=== PATIENT | female | born 1940 | race Caucasian/White ===

== ENCOUNTER 2016-10-30 08:51 | Day surgery (SDC) | payer MEDICARE ==
[~2016-10-30 08:51] MED LIST: Acetaminophen TAB* 325 MG PO PRN; Buffered Lidocaine 0.9% SYRIN* 5 ML/SYR SYRINGE INTRADERM ONE
[2016-10-30] MEDS ORDERED: Midazolam* 1 MG/ML 2 ML VIAL (2 MG) ONE (10:05)
[2016-10-30] MEDS ORDERED: fentaNYL* 50 MCG/ML 2 ML VIAL (100 MCG VIAL) ONE (10:05)
[2016-10-30 11:12] VITALS: BP 133/59
[2016-10-30] MEDS ORDERED: Propofol* 10 MG/ML 20 ML BTL IV PUSH ONE (11:23)
[2016-10-30] MEDS ORDERED: Phenylephrine 2.5% OPTH.SOL* 2 ML BTL ONE (13:56)
[2016-10-30] MEDS ORDERED: Lidocaine 1% MPF* 2 ML VIAL ONE (13:56)
[2016-10-30] MEDS ORDERED: Cyclopentolate 1% OPTH.SOL* 2 ML BTL ONE (13:56)
[2016-10-30] MEDS ORDERED: Tropicamide 1% OPTH.SOL* BTL ONE (13:56)
[2016-10-30] MEDS ORDERED: Buffered Lidocaine 0.9% SYRIN* 5 ML/SYR SYRINGE ONE (13:56)
[2016-10-30] MEDS ORDERED: Tetracaine 0.5% OPTH.SOL 4 ML* 1 DROP BTL ONE (13:56)
[2016-10-30] MEDS ORDERED: Neomycin/Polymy/Dex OPHTH.OIN* 3.5 GM ONE (13:56)
[2016-10-30] MEDS ORDERED: Ketorolac 0.5% OPHTH (NF) 0.5 % 5 ML BTL ONE (13:56)
--- NOTE | 2016-10-30 14:37 | OP ---
DATE OF OPERATION/DATE OF DICTATION: 10/30/2016 - [facility] DATE OF : 1940. SURGEON: Dr. Fidel Argueta. DEPUTY SHERIFF/INVESTIGATOR: None. ANESTHESIA: Topical with intravenous sedation. PRE-OP DIAGNOSIS: Cataract, right eye. POST-OP DIAGNOSIS: Cataract, right eye. OPERATIVE PROCEDURE: Phacoemulsification and cataract extraction with posterior chamber intraocular lens implant, right eye. COMPLICATIONS: None. BLOOD LOSS: None. DESCRIPTION OF PROCEDURE: The patient was brought to the operating room and received a small amount of intra-venous sedation. A drop of Tetracaine was placed in her right eye. She was prepped and draped in the usual sterile fashion for ophthalmic surgery and attention was directed to the right eye where a speculum was placed. A paracentesis was created at the 11 o'clock position and 0.1 cc of 1 percent preservative-free Lidocaine was injected into the anterior chamber followed by DisCoVisc. The eye was digitally stabilized while a 2.75 mm keratome was used to create a triplanar clear corneal incision at the 9 o'clock position. A continuous curvilinear capsulorrhexis was created with a cystotome and Utrata forceps. BSS on a cannula was used to hydrodissect the lens from the capsule. Phacoemulsification was performed in a divide-and- conquer technique to create four fragments which were removed. Residual cortical material was removed with irrigation and aspiration. DisCoVisc was used to inflate the capsular bag and an AUOOTO 22.0 diopter lens was folded and inserted into the capsular bag. DisCoVisc was removed using irrigation and aspiration. BSS on a cannula was used to hydrate the corneal stroma and seal the wound. At the end of the case the pupil was round and the lens was centered. The eye was of normal pressure and the wound was water tight. The speculum was removed and topical Maxitrol ointment was placed on the surface of the eye. The eye was closed, patched and shielded and the patient was sent to the recovery room in stable condition with post operative instructions and follow-up appointment given. [id number] #: [id number] MTDD
== END 2016-10-30 11:09 | disposition home or self-care (01) ==
LOC: OREAST 08:51
PROVIDERS: ATTEND Ophthalmology
DX: H26.9 Unspecified cataract (principal); I10 Essential (primary) hypertension; J44.9 Chronic obstructive pulmonary disease, unspecified; C34.90 Malignant neoplasm of unspecified part of unspecified bronchus or lung; Z79.82 Long term (current) use of aspirin; Z88.8 Allergy status to other drugs, medicaments and biological substances; Z87.891 Personal history of nicotine dependence; E78.00 Pure hypercholesterolemia, unspecified
CPT/HCPCS: A9270-GY; J2250; J2704; J3010; V2632

== ENCOUNTER 2016-11-06 10:31 | Day surgery (SDC) | payer MEDICARE ==
[2016-11-06] MEDS ORDERED: fentaNYL* 50 MCG/ML 2 ML VIAL (100 MCG VIAL) ONE (11:03)
[2016-11-06] MEDS ORDERED: Midazolam* 1 MG/ML 2 ML VIAL (2 MG) ONE (11:03)
[2016-11-06 12:12] VITALS: BP 123/45
[2016-11-06] MEDS ORDERED: Cyclopentolate 1% OPTH.SOL* 2 ML BTL ONE (13:18)
[2016-11-06] MEDS ORDERED: Buffered Lidocaine 0.9% SYRIN* 5 ML/SYR SYRINGE ONE (13:18)
[2016-11-06] MEDS ORDERED: Ketorolac 0.5% OPHTH (NF) 0.5 % 5 ML BTL ONE (13:18)
[2016-11-06] MEDS ORDERED: Phenylephrine 2.5% OPTH.SOL* 2 ML BTL ONE (13:18)
[2016-11-06] MEDS ORDERED: Tropicamide 1% OPTH.SOL* BTL ONE (13:18)
[2016-11-06] MEDS ORDERED: Lidocaine 1% MPF* 2 ML VIAL ONE (13:18)
[2016-11-06] MEDS ORDERED: Neomycin/Polymy/Dex OPHTH.OIN* 3.5 GM ONE (13:18)
[2016-11-06] MEDS ORDERED: Tetracaine 0.5% OPTH.SOL 4 ML* 1 DROP BTL ONE (13:18)
--- NOTE | 2016-11-07 02:35 | OP ---
DATE OF OPERATION: 11/06/16 [facility] DATE OF : [birth year] SURGEON: Dr. Fidel Argueta. KILNMAN: None. ANESTHESIOLOGIST: Wily Salazar MD ANESTHESIA: Topical with intravenous sedation. PRE-OP DIAGNOSIS: Cataract, left eye. POST-OP DIAGNOSIS: Cataract, left eye. OPERATIVE PROCEDURE: Phacoemulsification and cataract extraction with posterior chamber intraocular lens implant, left eye. COMPLICATIONS: None. BLOOD LOSS: None. DESCRIPTION OF PROCEDURE: The patient was brought to the operating room and received a small amount of intravenous sedation. A drop of Tetracaine was placed in her left eye. She was prepped and draped in the usual sterile fashion for ophthalmic surgery and attention was directed to the left eye where a speculum was placed. A paracentesis was created at the 5 o'clock position and 0.1 cc of 1 percent preservative-free Lidocaine was injected into the anterior chamber followed by DisCoVisc. The eye was digitally stabilized while a 2.75 mm keratome was used to create a triplanar clear corneal incision at the 3 o'clock position. A continuous curvilinear capsulorrhexis was created with a cystotome and Utrata forceps. BSS on a cannula was used to hydrodissect the lens from the capsule. Phacoemulsification was performed in a divide-and- conquer technique to create four fragments which were removed. Residual cortical material was removed with irrigation and aspiration. DisCoVisc was used to inflate the capsular bag and an AU00T0 22.5 diopter lens was folded and inserted into the capsular bag. DisCoVisc was removed using irrigation and aspiration. BSS on a cannula was used to hydrate the corneal stroma and seal the wound. At the end of the case the pupil was round and the lens was centered. The eye was of normal pressure and the wound was water tight. The speculum was removed and topical Maxitrol ointment was placed on the surface of the eye. The eye was closed, patched and shielded and the patient was sent to the recovery room in stable condition with post operative instructions and follow-up appointment given. [id number]/CPS #: [id number] MTDD
== END 2016-11-06 12:10 | disposition home or self-care (01) ==
LOC: OREAST 10:31
PROVIDERS: ATTEND Ophthalmology
DX: H25.042 Posterior subcapsular polar age-related cataract, left eye (principal); I10 Essential (primary) hypertension; J44.9 Chronic obstructive pulmonary disease, unspecified; E78.00 Pure hypercholesterolemia, unspecified; M54.30 Sciatica, unspecified side; L40.9 Psoriasis, unspecified; Z87.891 Personal history of nicotine dependence; Z85.118 Personal history of other malignant neoplasm of bronchus and lung; Z88.5 Allergy status to narcotic agent; Z79.82 Long term (current) use of aspirin
CPT/HCPCS: A9270-GY; J2250; J3010; V2632

== ENCOUNTER 2017-05-23 18:23 | Emergency (ER) | payer MEDICARE ==
--- NOTE | 2017-05-23 20:01 | RAD ---
INDICATION: Bilateral leg swelling COMPARISON: May 01, 2013 TECHNIQUE: PA and lateral dual-energy views were obtained. FINDINGS: Bones/Soft Tissues: There are no acute bony findings. Cardiomediastinal: The cardiomediastinal silhouette is normal. Lungs: There are no infiltrates. Pleura: There are no pleural effusions. Other: None IMPRESSION: NO ACTIVE DISEASE.
--- NOTE | 2017-05-23 20:52 | RAD ---
INDICATION: Pain and swelling. COMPARISON: None TECHNIQUE: Duplex interrogation of the Lowerextremity was performed. FINDINGS: Deep veins: The common femoral, great saphenous, profunda femoris, proximal, mid, and distal deep femoral, popliteal, posterior tibial, and peroneal veins are patent. There is normal compressibility, augmentation, and phasic flow. Superficial veins: There are no findings of superficial thrombophlebitis. Popliteal fossa:There is a complex popliteal cyst measuring 2.7 x 2.2 x 5.2 cm.. Soft tissues:There are no soft tissue abnormalities. IMPRESSION: NO EVIDENCE OF DEEP VENOUS THROMBOSIS. POPLITEAL CYST.
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
[2017-05-23 21:43] VITALS: BP 137/72
== END 2017-05-23 21:41 | disposition home or self-care (01) ==
LOC: ED 18:23
DX: R60.9 Edema, unspecified (principal); M71.22 Synovial cyst of popliteal space [Baker], left knee; Z87.891 Personal history of nicotine dependence; Z85.118 Personal history of other malignant neoplasm of bronchus and lung; I10 Essential (primary) hypertension; J44.9 Chronic obstructive pulmonary disease, unspecified
CPT/HCPCS: 71046; 99282

== ENCOUNTER 2018-01-22 10:03 | Emergency (ER) | payer MEDICARE ==
[2018-01-22 10:12] VITALS: BP 143/71
--- NOTE | 2018-01-22 11:50 | UC ---
Dental HPI - HPI Summary HPI Summary: 77 yo with a number of symptoms most prominently the complaint of teeth pain radiating down her back, and around to her stomach. Was seen two days ago for a physical and this complaint was not present. She is concerned about an infection "in my mouth that's draining down my back and around to my stomach." Hx positive for lung cancer and patient is scheduled for a lumbar MRI to evaluate incontinence. - History of Current Complaint Chief Complaint: UCDentalProblem Stated Complaint: DENTAL PAIN Time Seen by Provider: 01/22/18 11:21 Pain Intensity: 2 - Allergies/Home Medications Allergies/Adverse Reactions: Allergies Allergy/AdvReac Type Severity Reaction Status Date / Time meperidine Allergy Severe Hallucinati Verified 05/23/17 19:14 ons enviromental Allergy Eyes Uncoded 05/23/17 18:29 Itchy/Swollen/Red/Watery PMH/Surg Hx/FS Hx/Imm Hx Previously Healthy: No Cardiovascular History: Hypertension Respiratory History: COPD Cancer History: Lung Cancer - Surgical History Surgical History: Yes Surgery Procedure, Year, and Place: BREAST REDUCTION 1957. TONSILECTOMY 1955 - Family History Known Family History: Positive: Hypertension, Blood Disorder - Social History Occupation: Retired Lives: Alone Alcohol Use: None Substance Use Type: None Smoking Status (MU): Former Smoker Amount Used/How Often: 1 cig/day Have You Smoked in the Last Year: No When Did the Patient Quit Smoking/Using Tobacco: 2 years ago Household Exposure Type: Cigarettes - Immunization History Most Recent Tetanus Shot: <5 YEARS Review of Systems All Other Systems Reviewed And Are Negative: Yes Constitutional: Negative: Fever Skin: Positive: Negative Eyes: Positive: Negative ENT: Positive: Dental Pain - teeth 23,24,25,26; missing upper teeth; tender with erosion left upper teeth ridge Respiratory: Positive: Negative Cardiovascular: Positive: Negative Gastrointestinal: Positive: Negative Genitourinary: Positive: Other - incontinence intermittent Is Patient Immunocompromised?: No Physical Exam - Summary Physical Exam Summary: left arm: 147/65, 78; right: 149/64; 75. Appearance: The patient is well-appearing, is in no pain or distress, and is well-nourished. Eyes: Conjunctiva are clear. Pupils are equal and reactive to light and accommodation. Extraocular muscle movement is intact. ENT: The hearing is decreased, the pharynx is normal, and the TMs are normal. There is no muffled or hoarse voice. No stridor. Multiple missing teeth; tender teeth 23, 24,25,26. Neck: The neck is supple and there is no lymphadenopathy. Respiratory: The chest is nontender to palpation and without crepitus. The lungs are clear, there are normal breath sounds, and there is no respiratory distress. No wheezes, rales or rhonchi. No reproducible pain with palpation or breathing. Cardiovascular: Heart sounds reveal a regular rate and rhythm. There are no clicks, rubs or murmurs. There are no carotid bruits or thrills. Circulation is grossly intact. Pulses and BP equal both arms. Abdomen: The abdomen is soft and nontender. There is no organomegaly. Bowel sounds are present and within normal limits. No point tenderness at McBurneys point. No pain the is reproducible that resembles the discomfort that the patient describes. Musculoskeletal: Strength is intact. The patient moves all extremities. Neurological: The patient is alert. Motor and sensory examination grossly intact. Speech is normal. Psychological: The patient displays age appropriate behavior. Oriented to person , place and time. Skin: Negative for rashes. Triage Information Reviewed: Yes Appearance: Well-Appearing Vital Signs: Initial Vital Signs Temp 98.8 F 01/22/18 10:08 Pulse 70 01/22/18 10:08 Resp 16 01/22/18 10:08 BP 143/71 01/22/18 10:08 Pulse Ox 100 01/22/18 10:08 Eye Exam: Normal ENT: Positive: Dental tenderness - 23,24,25,26, tender no upper teeth no abscess felt. Negative: Hearing grossly normal - decreased hearing Dental: Positive: Percussion Tenderness @ - 23,24,25,26 Respiratory: Positive: Lungs clear - decreased breath sounds Cardiovascular: Positive: RRR, No Murmur Abdominal Exam: Normal Abdomen Description: Positive: Nontender Dental Complaint Course/Dx - Course Course Of Treatment: 77 yo female with hx of lung cancer, under control, with unclear complaint of mouth pain radiating down back and around to stomach at front beginning in her mouth. No blood pressure difference in arms. Lung exam does not suggest an acute process. Possible GERD, PE, or pulmonary process. Patient refuses x ray. We discussed her tender teeth. No abscess appreciated. Will start amoxicillin and patient will call her doctor today. EKG shows no acute ischemia. Patient had physical two days ago that was unremarkable. - Differential Dx/Diagnosis Differential Diagnosis/Dx: Dental Abscess, Dental Caries, Other - cannot rule out other process related to lung, heart or abdomen to explain discomfort distribution Provider Diagnosis: Atypical toothache Discharge - Sign-Out/Discharge Documenting (check all that apply): Patient Departure All imaging exams completed and their final reports reviewed: No Studies - Discharge Plan Condition: Stable Disposition: HOME Prescriptions: Amoxicillin PO (*) [Amoxicillin 875 MG (*)] 875 mg PO BID #20 tab MDD 2 Patient Education Materials: Dental Abscess (ED), Toothache (ED) Referrals: Dinora Dalal MD [Primary Care Provider] - Additional Instructions: WE DISCUSSED: PLEASE SEEK CARE AT THE EMERGENCY DEPARTMENT IF SYMPTOMS WORSEN OR IF NEW SYMPTOMS DEVELOP. FOLLOW UP WITH YOUR PRIMARY CARE PHYSICIAN IF CONDITION CONTINUES BEYOND 3 DAYS WITHOUT IMPROVEMENT. YOUR DIAGNOSIS IS: toothache, lower front teeth; possible abscess near the bottom of the teeth YOUR PRESCRIPTION RECOMMENDATION IS: amoxicillin, twice a day for 10 days OTHER INSTRUCTIONS: Hypertension Discharge Instructions: Your blood pressure reading today was 147/71, indicating HYPERTENSION. Follow- up with your primary care provider within 4 weeks for blood pressure check and appropriate recommendations and treatment, as needed. ALSO: call your doctor to arrange follow; MRI in two days as planned; watch for any temperature or worsening pain or cough or shortness of breath. Your intermittent back discomfort coming to your stomach may be caused by other conditions in your heart, lungs or stomach. Take an antacid for heartburn. Follow up with your doctor to focus your diagnosis. Your EKG did not show any specific, new problems. - Billing Disposition and Condition Condition: STABLE Disposition: Home
== END 2018-01-22 12:06 | disposition home or self-care (01) ==
LOC: UCEAST 10:03
DX: K08.89 Other specified disorders of teeth and supporting structures (principal); Z88.5 Allergy status to narcotic agent; Z87.891 Personal history of nicotine dependence
CPT/HCPCS: 93005; 99212; G0463

== ENCOUNTER 2019-08-26 19:07 | Inpatient (IN) ==
[2019-08-26] MEDS ORDERED: NS 0.9% 1000 ml BAG 1,000 ML IV ONE (20:06)
[2019-08-26 20:34] LABS: ABS Basophils 0.1 10^3/ul (0-0.2); ABS Eosinophils 0.1 10^3/ul (0-0.6); ABS Monocytes 0.6 10^3/ul (0-0.8); Eosinophil % 1.2 %; Hematocrit 31 % (35-47); Lymphocyte % 17.4 %; Mean Corpuscular HGB Conc 35 g/dL (31-36); Mean Corpuscular Hemoglobin 31 pg (27-31); Mean Corpuscular Volume 88 fL (80-97); Mean Platelet Volume 6.9 fL (7.4-10.4); Platelet Count 320 10^3/uL (150-450); Red Blood Count 3.57 10^6 /uL (3.70-4.87); Red Cell Distribution Width 14 % (10-15); White Blood Count 5.9 10^3/uL (3.5-10.8)
[2019-08-26 20:51] LABS: ALT 18 U/L (7-52); Albumin 4.4 g/dL (3.2-5.2); Albumin/Globulin Ratio 1.2 (1-3); Alkaline Phosphatase 76 U/L (34-104); BUN/Creatinine Ratio 19.5 (8-20); Blood Urea Nitrogen 23 mg/dL (6-24); CO2 Carbon Dioxide 24 mmol/L (22-32); Calcium 9.4 mg/dL (8.6-10.3); Chloride 77 mmol/L (101-111); EGFR African American 53.6 (>60); EGFR Non-African American 44.3 (>60); Globulin 3.6 g/dL (2-4); Glucose 87 mg/dL (70-100); Magnesium 1.9 mg/dL (1.9-2.7)
[2019-08-26 20:53] LABS: Troponin I 0.01 ng/mL (<0.03)
[2019-08-26 20:56] LABS: Sodium 110 mmol/L (135-145)
[2019-08-26 20:58] LABS: Anion Gap 9 mmol/L (2-11)
[2019-08-26 21:05] LABS: TSH (Thyroid Stimulating Horm) 2.18 mcIU/mL (0.34-5.60)
[2019-08-26 21:23] LABS: Urine Appearance Cloudy; Urine Bilirubin Negative (Negative); Urine Blood 1+ (Negative); Urine Color Yellow; Urine Glucose Negative (Negative); Urine Ketones Trace (Negative); Urine Nitrite Positive (Negative); Urine Protein Negative (Negative); Urine Specific Gravity 1.016 (1.010-1.030); Urine Urobilinogen Negative (Negative)
[2019-08-26 21:27] LABS: Urine Bacteria Absent (Absent); Urine Red Blood Cell Trace(0-2/hpf) (Absent); Urine Squamous Epithelial Cell Present (Absent); Urine White Blood Cell 1+(6-10/hpf) (Absent)
[2019-08-26 21:43] LABS: Potassium Redraw 4.6 mmol/L (3.5-5.0)
[2019-08-26 22:09] LABS: Urine Creatinine Concentration 27.21 mg/dL
[2019-08-26] MEDS ORDERED: Albuterol 2.5mg/3 ml (0.083%) NEB.SOLN INH PRN (22:22)
[2019-08-26] MEDS ORDERED: methylPREDNISolone 125 mg 2 ML VIAL IV ONE (22:23)
[2019-08-26] MEDS ORDERED: Senna TAB 8.6 mg TAB PO PRN (22:25)
[2019-08-26] MEDS ORDERED: Azithromycin 500 mg/250 ml NS 500 MG/250 ML BAG IVPB ONE (22:40)
[2019-08-27] MEDS: Enoxaparin 40 MG/0.4 ML SYR(*) SUBCUT SCH ×2 (00:04→21:58)
[2019-08-27] MEDS: HYDROcodone/ACETAMIN 5/325 mg TAB PO PRN ×3 (00:04→22:31)
[2019-08-27] MEDS: Mometasone/Formoter 200/5 MDI INH SCH ×3 (00:38→19:14)
[2019-08-27 00:46] LABS: Calcium 8.1 mg/dL (8.6-10.3); Potassium 4.6 mmol/L (3.5-5.0)
[2019-08-27] MEDS ORDERED: SODIUM CHLORIDE 3% IV SCH ×4 (00:50→07:47)
[2019-08-27] MEDS ORDERED: HYPERTONIC IV SCH ×4 (00:50→07:47)
[2019-08-27 00:52] LABS: BUN/Creatinine Ratio 19.4 (8-20); EGFR African American 62.7 (>60); EGFR Non-African American 51.8 (>60)
[2019-08-27 04:38] LABS: ABS Lymphocytes 0.4 10^3/ul (1.0-4.8); ABS Monocytes 0.1 10^3/ul (0-0.8); Eosinophil % 0.1 %; Hematocrit 30 % (35-47); Hemoglobin 10.4 g/dL (12.0-16.0); Lymphocyte % 8.2 %; Mean Corpuscular HGB Conc 35 g/dL (31-36); Mean Corpuscular Hemoglobin 30 pg (27-31); Mean Corpuscular Volume 87 fL (80-97); Mean Platelet Volume 6.4 fL (7.4-10.4); Platelet Count 286 10^3/uL (150-450); Red Cell Distribution Width 14 % (10-15); White Blood Count 5.5 10^3/uL (3.5-10.8)
[2019-08-27 04:49] LABS: BUN/Creatinine Ratio 19.3 (8-20); Calcium 8.7 mg/dL (8.6-10.3); EGFR African American 58.7 (>60); EGFR Non-African American 48.5 (>60); Potassium 4.6 mmol/L (3.5-5.0)
[2019-08-27] MEDS: SPIRIVA Respimat (tiotropium) 2.5 mcg/inh Inhaler INH SCH (08:20)
[2019-08-27 09:35] LABS: BUN/Creatinine Ratio 17.4 (8-20); Calcium 8.5 mg/dL (8.6-10.3); EGFR African American 58.7 (>60); EGFR Non-African American 48.5 (>60); Potassium 4.4 mmol/L (3.5-5.0)
[2019-08-27 14:05] LABS: BUN/Creatinine Ratio 18.7 (8-20); Calcium 8.9 mg/dL (8.6-10.3); EGFR Non-African American 49.6 (>60)
[2019-08-27] MEDS ORDERED: SODIUM CHLORIDE 3% IV ONE (14:07)
[2019-08-27] MEDS ORDERED: HYPERTONIC IV ONE (14:07)
[2019-08-27 18:59] LABS: BUN/Creatinine Ratio 18.5 (8-20); Calcium 8.5 mg/dL (8.6-10.3); EGFR African American 53.1 (>60); EGFR Non-African American 43.9 (>60); Potassium 4.3 mmol/L (3.5-5.0)
[2019-08-27] MEDS: Azithromycin IV(*) 250 MG in NS 0.9% 250 ml 250 ML IVPB SCH (21:58)
[2019-08-27 23:04] LABS: BUN/Creatinine Ratio 17.5 (8-20); Calcium 8.4 mg/dL (8.6-10.3); EGFR African American 45.1 (>60); EGFR Non-African American 37.3 (>60); Potassium 4.5 mmol/L (3.5-5.0)
[2019-08-27] MEDS: Ondansetron 4 mg VIAL 2 MG/ML 2 ml VIAL IV PRN (23:16)
[2019-08-27] MEDS ORDERED: D5W 500 ml BAG 500 ML IV ONE (23:20)
[2019-08-28] MEDS: Albuterol HFA INHALER 8 gm MDI INH PRN ×2 (00:04→06:55)
[2019-08-28] MEDS: Al Hydrox/Mg Hydrox/Simet LIQ 30 ML UDC PO PRN ×3 (00:04→15:31)
[2019-08-28 02:47] LABS: BUN/Creatinine Ratio 19.5 (8-20); Calcium 8.7 mg/dL (8.6-10.3); EGFR African American 46.7 (>60); EGFR Non-African American 38.6 (>60); Potassium 4.3 mmol/L (3.5-5.0)
[2019-08-28] MEDS ORDERED: NS 0.9% 1000 ml BAG 1,000 ML IV SCH (03:20)
[2019-08-28] MEDS ORDERED: NS 0.9% 500 ml BAG 500 ML IV ONE (03:55)
[2019-08-28 06:57] LABS: ABS Lymphocytes 0.6 10^3/ul (1.0-4.8); ABS Monocytes 0.5 10^3/ul (0-0.8); Eosinophil % 0.3 %; Hematocrit 28 % (35-47); Hemoglobin 9.6 g/dL (12.0-16.0); Lymphocyte % 10.3 %; Mean Corpuscular HGB Conc 34 g/dL (31-36); Mean Corpuscular Hemoglobin 31 pg (27-31); Mean Corpuscular Volume 91 fL (80-97); Mean Platelet Volume 7.5 fL (7.4-10.4); Nucleated Red Blood Cells % 0.1; Platelet Count 124 10^3/uL (150-450); Red Blood Count 3.12 10^6 /uL (3.70-4.87); Red Cell Distribution Width 14 % (10-15); White Blood Count 5.6 10^3/uL (3.5-10.8)
[2019-08-28] MEDS: Mometasone/Formoter 200/5 MDI INH SCH ×2 (07:34→20:28)
[2019-08-28] MEDS: SPIRIVA Respimat (tiotropium) 2.5 mcg/inh Inhaler INH SCH (07:35)
[2019-08-28 07:37] LABS: Albumin 3.5 g/dL (3.2-5.2); CO2 Carbon Dioxide 20 mmol/L (22-32); Chloride 92 mmol/L (101-111)
[2019-08-28 07:43] LABS: ALT 15 U/L (7-52); Albumin/Globulin Ratio 1.3 (1-3); Alkaline Phosphatase 63 U/L (34-104); BUN/Creatinine Ratio 19.7 (8-20); Blood Urea Nitrogen 23 mg/dL (6-24); EGFR African American 54.1 (>60); EGFR Non-African American 44.7 (>60); Globulin 2.7 g/dL (2-4); Glucose 131 mg/dL (70-100); Phosphorus 3.1 mg/dL (2.5-5.0); Total Protein 6.2 g/dL (6.4-8.9)
[2019-08-28 08:00] LABS: Anion Gap 7 mmol/L (2-11); Sodium 119 mmol/L (135-145)
[2019-08-28 10:46] LABS: Activated Partial Thrombo Time 28.5 seconds (26.0-38.0); INR 0.88 (0.82-1.09)
[2019-08-28] MEDS: methylPREDNISolone SOD 40 mg/ml 1 ml VIAL IV SCH ×2 (12:30→22:51)
[2019-08-28 14:20] LABS: BUN/Creatinine Ratio 20.9 (8-20); Calcium 8.8 mg/dL (8.6-10.3); EGFR African American 55.2 (>60); EGFR Non-African American 45.6 (>60); Potassium 4.6 mmol/L (3.5-5.0)
[2019-08-28] MEDS: Albuterol/Ipratropium NEB.SOL (2.5/0.5 MG) 3 ML NEB.SOLN INH PRN (14:41)
[2019-08-28 20:11] LABS: BUN/Creatinine Ratio 20.2 (8-20); Calcium 8.7 mg/dL (8.6-10.3); EGFR African American 50.6 (>60); EGFR Non-African American 41.8 (>60)
[2019-08-28 20:14] LABS: Potassium 5.1 mmol/L (3.5-5.0)
[2019-08-28] MEDS: Enoxaparin 40 MG/0.4 ML SYR(*) SUBCUT SCH (22:51)
[2019-08-28] MEDS: HYDROcodone/ACETAMIN 5/325 mg TAB PO PRN (22:52)
[2019-08-29] MEDS: Azithromycin IV(*) 250 MG in NS 0.9% 250 ml 250 ML IVPB SCH ×2 (03:42→22:05)
[2019-08-29] MEDS: methylPREDNISolone SOD 40 mg/ml 1 ml VIAL IV SCH ×3 (03:43→21:45)
[2019-08-29 04:48] LABS: ABS Lymphocytes 0.4 10^3/ul (1.0-4.8); ABS Monocytes 0.2 10^3/ul (0-0.8); Hematocrit 26 % (35-47); Lymphocyte % 6.1 %; Mean Corpuscular HGB Conc 35 g/dL (31-36); Mean Corpuscular Hemoglobin 30 pg (27-31); Mean Corpuscular Volume 87 fL (80-97); Mean Platelet Volume 6.6 fL (7.4-10.4); Platelet Count 273 10^3/uL (150-450); Red Blood Count 2.97 10^6 /uL (3.70-4.87); Red Cell Distribution Width 14 % (10-15); White Blood Count 6.1 10^3/uL (3.5-10.8)
[2019-08-29 05:02] LABS: BUN/Creatinine Ratio 25.9 (8-20); Calcium 8.6 mg/dL (8.6-10.3); EGFR African American 54.7 (>60); EGFR Non-African American 45.2 (>60); Potassium 4.9 mmol/L (3.5-5.0)
[2019-08-29] MEDS: SPIRIVA Respimat (tiotropium) 2.5 mcg/inh Inhaler INH SCH (08:18)
[2019-08-29] MEDS: Mometasone/Formoter 200/5 MDI INH SCH ×2 (08:18→19:13)
[2019-08-29] MEDS: Albuterol/Ipratropium NEB.SOL (2.5/0.5 MG) 3 ML NEB.SOLN INH PRN ×2 (08:21→19:17)
[2019-08-29] MEDS: Al Hydrox/Mg Hydrox/Simet LIQ 30 ML UDC PO PRN (12:01)
[2019-08-29] MEDS: Enoxaparin 40 MG/0.4 ML SYR(*) SUBCUT SCH (21:45)
[2019-08-30] MEDS: Ondansetron 4 mg VIAL 2 MG/ML 2 ml VIAL IV PRN (01:12)
[2019-08-30] MEDS: methylPREDNISolone SOD 40 mg/ml 1 ml VIAL IV SCH ×3 (06:08→22:15)
[2019-08-30 06:48] LABS: ABS Lymphocytes 0.5 10^3/ul (1.0-4.8); ABS Monocytes 0.3 10^3/ul (0-0.8); Hematocrit 25 % (35-47); Hemoglobin 8.8 g/dL (12.0-16.0); Mean Corpuscular HGB Conc 35 g/dL (31-36); Mean Corpuscular Hemoglobin 31 pg (27-31); Mean Corpuscular Volume 89 fL (80-97); Mean Platelet Volume 6.4 fL (7.4-10.4); Platelet Count 286 10^3/uL (150-450); Red Blood Count 2.86 10^6 /uL (3.70-4.87); Red Cell Distribution Width 15 % (10-15); White Blood Count 7.5 10^3/uL (3.5-10.8)
[2019-08-30 07:07] LABS: BUN/Creatinine Ratio 31.5 (8-20); Calcium 8.7 mg/dL (8.6-10.3); EGFR African American 49.2 (>60); EGFR Non-African American 40.7 (>60)
[2019-08-30] MEDS: Mometasone/Formoter 200/5 MDI INH SCH ×2 (08:20→19:29)
[2019-08-30] MEDS: Albuterol/Ipratropium NEB.SOL (2.5/0.5 MG) 3 ML NEB.SOLN INH PRN (08:20)
[2019-08-30] MEDS: SPIRIVA Respimat (tiotropium) 2.5 mcg/inh Inhaler INH SCH (08:24)
[2019-08-30] MEDS: Azithromycin IV(*) 250 MG in NS 0.9% 250 ml 250 ML IVPB SCH (22:12)
[2019-08-30] MEDS: Enoxaparin 40 MG/0.4 ML SYR(*) SUBCUT SCH (22:13)
[2019-08-31] MEDS: methylPREDNISolone SOD 40 mg/ml 1 ml VIAL IV SCH ×2 (05:37→14:53)
[2019-08-31] MEDS: Albuterol/Ipratropium NEB.SOL (2.5/0.5 MG) 3 ML NEB.SOLN INH PRN ×2 (07:54→20:27)
[2019-08-31] MEDS: SPIRIVA Respimat (tiotropium) 2.5 mcg/inh Inhaler INH SCH (07:58)
[2019-08-31] MEDS: Mometasone/Formoter 200/5 MDI INH SCH ×2 (07:58→20:32)
[2019-08-31 11:47] LABS: BUN/Creatinine Ratio 32.5 (8-20); Calcium 9.6 mg/dL (8.6-10.3); EGFR African American 38.6 (>60); EGFR Non-African American 31.9 (>60); Potassium 4.9 mmol/L (3.5-5.0)
[2019-08-31] MEDS ORDERED: Iodixanol (CONTRAST) 320 MG/ML 100 ML SDV IV ONE (11:50)
[2019-08-31] MEDS ORDERED: guaiFENesin 100 mg/5 ml LIQ unit dose cup PO PRN (14:26)
[2019-08-31] MEDS ORDERED: Gadoteridol (CONTRAST) 279.3 MG/ML 10 ML IV ONE (18:12)
[2019-08-31] MEDS: Enoxaparin 40 MG/0.4 ML SYR(*) SUBCUT SCH (21:30)
[2019-08-31] MEDS: HYDROcodone/ACETAMIN 5/325 mg TAB PO PRN (21:39)
[2019-09-01] MEDS: methylPREDNISolone SOD 40 mg/ml 1 ml VIAL IV SCH ×2 (05:54→08:20)
[2019-09-01] MEDS: SPIRIVA Respimat (tiotropium) 2.5 mcg/inh Inhaler INH SCH (07:57)
[2019-09-01] MEDS: Albuterol/Ipratropium NEB.SOL (2.5/0.5 MG) 3 ML NEB.SOLN INH PRN (08:03)
[2019-09-01] MEDS: Mometasone/Formoter 200/5 MDI INH SCH ×2 (08:04→19:46)
[2019-09-01 09:14] LABS: Albumin/Globulin Ratio 1.3 (1-3); BUN/Creatinine Ratio 34.5 (8-20); Calcium 9.1 mg/dL (8.6-10.3); EGFR African American 44.4 (>60); EGFR Non-African American 36.7 (>60); Total Bilirubin 0.4 mg/dL (0.2-1.0)
[2019-09-01 09:46] LABS: BUN/Creatinine Ratio 34.8 (8-20); Blood Urea Nitrogen 48 mg/dL (6-24); CO2 Carbon Dioxide 24 mmol/L (22-32); Chloride 93 mmol/L (101-111); EGFR African American 44.7 (>60); Glucose 117 mg/dL (70-100); Sodium 124 mmol/L (135-145)
[2019-09-01 09:49] LABS: Anion Gap 7 mmol/L (2-11); Potassium 5.2 mmol/L (3.5-5.0)
[2019-09-01] MEDS ORDERED: fentaNYL 100 mcg/2 ml 50 MCG/ML VIAL ONE (11:06)
[2019-09-01] MEDS ORDERED: Naloxone 0.4 mg VIAL 0.4 mg/ml 1 ml VIAL ONE (11:06)
[2019-09-01 12:28] VITALS: BP 156/96
[2019-09-01 16:11] LABS: % Iron Saturation 26 % (15-55); Iron 89 ug/dL (50-212); Total Iron Binding Capacity 340 mcg/dL (250-450); Transferrin 243 mg/dL (203-362)
[2019-09-01 16:13] LABS: Ferritin 237.5 ng/mL (11-307)
== END 2019-09-01 18:40 | disposition home or self-care (01) | DRG 644 ==
LOC: ED 19:07 → ICU 22:15 → MEDTELE 08-28 17:56
PROVIDERS: ADMIT Pediatrics; ATTEND Internal Medicine